=== PATIENT | male | born 1965 | race Caucasian/White ===

== ENCOUNTER 2016-09-18 15:32 | Emergency (ER) | payer OTHER, MEDICAID ==
[~2016-09-18] VITALS: Ht 160 cm; Wt 49.9 kg
[~2016-09-18 15:32] MED LIST: AMIK500I IJ; ATEN25TA7 PO; BENZ1TAB24 PO; CARB15SO5 OT; CARB200T1 GT; CHLOROPHYLL GT; DOCU50SO2 GT; ESOM40PK PO; MESA10003 RC; MIRABULK GT; SENN-72 GT; SUCR1TAB35 GT; SULF500T6 GT; SULF500T6 PO; [UNRECOGNIZED DRUG - CODE] GT; [UNRECOGNIZED DRUG - CODE] GT; [UNRECOGNIZED DRUG - CODE] PO
[2016-09-18 15:34] VITALS: BP 132/72
--- NOTE | 2016-09-18 15:52 | NUR ---
PATIENT TO BED 7 AT THIS TIME BY EMS
--- NOTE | 2016-09-18 16:00 | NUR ---
51/M biba from boarding care for a clogged g-tube this afternoon. Per EMS, facility states there is also a possible infection at the g-tube site. There is redness to stoma site and purulent draingage noted to drain sponge that was removed. Pt is awake, non verbal, unable to follow commands. Contractures noted to all 4 extremitites. Unable to ambulate.
--- NOTE | 2016-09-18 16:09 | NUR ---
Caregiver at bedside.
--- NOTE | 2016-09-18 16:27 | NUR ---
Patient being evaluated by Dr. De La Cruz at bedside.
--- NOTE | 2016-09-18 17:07 | NUR ---
Attempted to unclog/irrigate g-tube with coca cola per Dr. De La Cruz order. Unable to flush g-tube. No residual noted. Dr. De La Cruz made aware.
--- NOTE | 2016-09-18 17:32 | NUR ---
NO SMALLER SIZE G-TUBE AVAILABLE IN OR. DR. MCCOY MADE AWARE. NEW G-TUBE PLACED AT BEDSIDE, 18FR. SUTURE REMOVAL ALSO PLACED AT BEDSIDE FOR DR. MCCOY TO REPLACE G-TUBE. CAREGIVER AT BEDSIDE. VSS.
[2016-09-18] MEDS ORDERED: LIDOCAINE JELLY 2% 30 ML TUBE TP ONE (17:40)
--- NOTE | 2016-09-18 18:06 | NUR ---
Note tino in ED - 09/18/16 at 1807 by [facility] Patient will be admitted to care of Dr. Schulte. Admited to TELE. Will go to room 104-A. [facility] list completed. Report to Reinaldo DOWNING.
--- NOTE | 2016-09-18 19:04 | NUR ---
BRIEF CHANGED. PT CHANGED BACK INTO HIS CLOTHES. CAREGIVER AT BEDSIDE THE ENTIRE TIME. IV REMOVED FROM RIGHT WRIST. 4X4 APPLIED AND SECURED WITH TAPE. ABD BINDER APPLIED.
--- NOTE | 2016-09-18 19:16 | NUR ---
Pt report given to Júnior DOWNING. Transfer of care at this time.
--- NOTE | 2016-09-18 19:30 | NUR ---
IV removed, catheter intact and site benign. Applied folded 4x4 gauze and tape to stop bleeding.
--- NOTE | 2016-09-18 20:35 | NUR ---
Patient discharged with v/s stable. Written and verbal after care instructions given and explained. Patient verbalized understanding. Ambulance Transport with to intermediate. All questions addressed prior to discharge. Advised to follow up with PMD.
--- NOTE | 2016-09-18 20:35 | NUR ---
PT WAITING FOR TRANSPORT APPROVAL
--- NOTE | 2016-09-18 21:00 | NUR ---
[facility] WILL PICKUP PATIENT AT 0000.
[2016-09-18 22:42] VITALS: BP 104/62
--- NOTE | 2016-09-18 23:21 | NUR ---
[facility] HERE 206 ; TRANSPORT VIA RENY; REPORT ENDORSED TO MULUGETA
== END 2016-09-18 20:35 ==
LOC: MED 15:32
DX: K94.23 Gastrostomy malfunction (principal); Z88.1 Allergy status to other antibiotic agents; Z88.0 Allergy status to penicillin; Z88.8 Allergy status to other drugs, medicaments and biological substances; K21.9 Gastro-esophageal reflux disease without esophagitis
CPT/HCPCS: 43760; 74000; 93005; 99284

== ENCOUNTER 2018-03-13 14:46 | Emergency (ER) | payer OTHER, MEDICAID ==
[~2018-03-13] VITALS: Ht 152.4 cm; Wt 53.5 kg
[~2018-03-13 14:46] MED LIST changes: -BENZ1TAB24 PO; +BENZ1TAB99 PO; +MESA10002 RC; -MESA10003 RC
[2018-03-13 14:47] VITALS: BP 119/88
[2018-03-13 18:37] VITALS: BP 115/65
== END 2018-03-13 18:37 | disposition home or self-care (01) ==
LOC: MED 14:46
DX: K94.23 Gastrostomy malfunction (principal); K21.9 Gastro-esophageal reflux disease without esophagitis; I10 Essential (primary) hypertension; Z88.0 Allergy status to penicillin; Z88.1 Allergy status to other antibiotic agents; Z88.8 Allergy status to other drugs, medicaments and biological substances; Z79.899 Other long term (current) drug therapy
CPT/HCPCS: 43760; 74176; 74241; 82948; 99284; Q0092

== ENCOUNTER 2018-06-24 18:33 | Emergency (ER) | payer OTHER, MEDICAID ==
[~2018-06-24] VITALS: Ht 152.4 cm; Wt 49.4 kg
[~2018-06-24 18:33] MED LIST changes: +BENZ-248 PO; -BENZ1TAB99 PO
--- NOTE | 2018-06-24 18:36 | NUR ---
pt bryan bls to er bed 08
[2018-06-24 18:39] VITALS: BP 128/80
--- NOTE | 2018-06-24 18:43 | NUR ---
PATIENT BIBA FROM B/C WITH C/O CLOGGED G-TUBE X2 HOURS. PER CAREGIVE THEY TRIED WARM WATER, GT SOLUTION, SODA FLUSH, STILL UNABLE TO FLUSH. PT VSS, FLACC 0, OPEN EYES ONLY, APHSIC, UNABLE TO FOLLOW COMMANDS, NO S/S OF DISTRESS, CLEAR LUNG SOUNDS, REGULAR HR, NO EDEMA, GT IN PLACE, CLOTTED, INCONTINENT WITH B&B'S, CONTRACTURES TO ALL EXTREMITIES, SKIN IS INTACT, WARM AND DRY TO TOUCH, PATIENT POSITIONED FOR COMFORT; HOB ELEVATED; BEDRAILS UP X2; BED DOWN. ER MD MADE AWARE OF PT STATUS.
--- NOTE | 2018-06-24 19:23 | NUR ---
DR SANTANA AT BEDSIDE EVALUATING PT
--- NOTE | 2018-06-24 20:05 | NUR ---
#20 FR G-tube placed by Dr. Hogue. Flushed 2 lumens w/ 30cc of sterile water w/o resistance. Patient tolerated well.
--- NOTE | 2018-06-24 20:23 | NUR ---
X-RAY AT BEDSIDE FOR PLACEMENT.
--- NOTE | 2018-06-24 22:52 | NUR ---
TRANPORT AT BEDSIDE.
--- NOTE | 2018-06-24 23:00 | NUR ---
PT PICKED UP BY FACILITY TRANSPORT. VSS AT DISCHARGE. PT ACCOMPANIED BY 2 LVNS.
[2018-06-24 23:01] VITALS: BP 129/91
== END 2018-06-24 23:00 | disposition home or self-care (01) ==
LOC: MED 18:33
DX: K21.9 Gastro-esophageal reflux disease without esophagitis (principal); K94.23 Gastrostomy malfunction; I10 Essential (primary) hypertension; R07.9 Chest pain, unspecified; Z90.49 Acquired absence of other specified parts of digestive tract; Z79.899 Other long term (current) drug therapy; Z88.0 Allergy status to penicillin; Z88.1 Allergy status to other antibiotic agents; Z88.8 Allergy status to other drugs, medicaments and biological substances
CPT/HCPCS: 43762; 74241; 99284; Q0092

== ENCOUNTER 2020-01-24 09:21 | Emergency (ER) | payer OTHER, MEDICAID ==
[~2020-01-24] VITALS: Ht 144.8 cm; Wt 54.4 kg
[~2020-01-24 09:21] MED LIST changes: +BENZ-203 PO; -BENZ-248 PO
[2020-01-24 09:25] VITALS: BP 141/89
[2020-01-24 12:04] VITALS: BP 135/84
== END 2020-01-24 12:03 ==
LOC: MED 09:21
DX: K94.23 Gastrostomy malfunction (principal); E07.9 Disorder of thyroid, unspecified; I10 Essential (primary) hypertension; I63.9 Cerebral infarction, unspecified; K21.9 Gastro-esophageal reflux disease without esophagitis; R56.9 Unspecified convulsions; N28.9 Disorder of kidney and ureter, unspecified; Z88.1 Allergy status to other antibiotic agents; Z88.5 Allergy status to narcotic agent; Z88.0 Allergy status to penicillin; Z79.899 Other long term (current) drug therapy
CPT/HCPCS: 99283

== ENCOUNTER 2020-04-05 15:57 | Emergency (ER) | payer OTHER, MEDICAID ==
[~2020-04-05] VITALS: Ht 121.9 cm; Wt 53.5 kg
[~2020-04-05 15:57] MED LIST changes: -MESA10002 RC; +[UNRECOGNIZED DRUG - CODE] RC
--- NOTE | 2020-04-05 15:57 | NUR ---
BIBA TAKEN TO BED 2
[2020-04-05 16:34] VITALS: BP 128/85
--- NOTE | 2020-04-05 17:49 | NUR ---
patient resting no acute distress awaiting for Gtube placement.
--- NOTE | 2020-04-05 19:40 | NUR ---
RECEIVED REPORT FROM SALINA AHUMADA AND [facility] CARE.
[2020-04-05 20:20] VITALS: BP 128/85
--- NOTE | 2020-04-05 20:20 | NUR ---
Patient discharged with v/s stable. Written and verbal after care instructions given and explained. Patient verbalized understanding. Ambulance Transport with to longterm. All questions addressed prior to discharge. Advised to follow up with PMD.
== END 2020-04-05 20:20 ==
LOC: MED 15:57
DX: K94.20 Gastrostomy complication, unspecified (principal); K21.9 Gastro-esophageal reflux disease without esophagitis; I10 Essential (primary) hypertension; Z86.73 Personal history of transient ischemic attack (TIA), and cerebral infarction without residual deficits; N28.9 Disorder of kidney and ureter, unspecified; Z88.0 Allergy status to penicillin; Z88.1 Allergy status to other antibiotic agents; Z88.8 Allergy status to other drugs, medicaments and biological substances; Z79.899 Other long term (current) drug therapy
CPT/HCPCS: 43760; 43762; 99284

== ENCOUNTER 2021-01-12 10:25 | Inpatient (IN) | payer OTHER, MEDICAID, SELFPAY ==
[~2021-01-12] VITALS: Ht 142.2 cm; Wt 62.6 kg
[~2021-01-12 10:25] MED LIST changes: -BENZ-203 PO; +BENZ-315 PO; +DOCU50LI6 GT; -DOCU50SO2 GT; +[UNRECOGNIZED DRUG - CODE] PO; -[UNRECOGNIZED DRUG - CODE] PO
--- NOTE | 2021-01-12 10:25 | NUR ---
BIBA BLS TO ER BED 10
[2021-01-12] MEDS ORDERED: NACL 0.9% 1,000 ML IV SCH (10:30)
[2021-01-12] MEDS ORDERED: LEVOFLOXACIN 500 MG/D5W PREMIX 100 ML IV ONE (10:30)
--- NOTE | 2021-01-12 10:46 | NUR ---
SUPERVISOR TOY PARTS FORMER AT PT BEDSIDE.
[2021-01-12 10:57] VITALS: BP 135/88
--- NOTE | 2021-01-12 11:08 | NUR ---
55 Y/O NON-VERBAL MALE BIBA FROM [facility] C/O SOB X1DAY. PER EMS PT SPO2 92% ON RA ON ARRIVAL WITH AUDIBLE WHEEZES AND COUGH. PT A&OX0, GCS 9. PT PLACED ON 2L NC 95% ON RA. PT LUNGS AUSCULTATED WHEEZES THROUGHOUT. DENIES N/V, DENIES FEVER/CHILLS. PMH: PROFOUND INTELLECTUAL DISABILITY, BLIND, SEIZURE DISORDER, NEUROGENIC BLADDER AND BOWEL, QUADREPLEGIA, GTUBE, HYDROCEPHALUS, HTN, GERD, GASTRITIS, ORGANIC BRAIN DISORDER, TACHYCARDIA. ALLERGIES: CEPHALOSPORINS, PCN, AMPICILLIN, IMPERIUM, AZTREONAM
[2021-01-12 11:15] LABS: BASOPHILS % (AUTO) 0.4 % (0.0-2.0); EOSINOPHILS # (AUTO) 0.3 K/uL (0-0.4); EOSINOPHILS % (AUTO) 3.6 % (0.0-4.0); HEMATOCRIT 40.5 % (36-52); HEMOGLOBIN 13.5 g/dL (12.0-18.0); LYMPHOCYTES # (AUTO) 1.1 K/uL (2.0-11.5); LYMPHOCYTES % (AUTO) 15.7 % (20.5-51.1); MEAN CORPUSCULAR HEMOGLOBIN 34 pg (27-31); MEAN CORPUSCULAR HGB CONC 33 g/dL (33-37); MEAN CORPUSCULAR VOLUME 102.2 fL (80-94); MONOCYTES # (AUTO) 0.8 K/uL (0.8-1.0); MONOCYTES % (AUTO) 10.9 % (1.7-9.3); NEUTROPHILS # (AUTO) 4.9 K/uL (1.8-7.7); NEUTROPHILS % (AUTO) 69.4 % (42.2-75.2); PLATELET COUNT (AUTO) 271 K/uL (140-450); RED BLOOD CELL COUNT(AUTO) 3.96 MIL/uL (4.20-6.10); RED CELL DISTRIBUTION WIDTH 14.7 % (11.6-13.7)
--- NOTE | 2021-01-12 11:32 | NUR ---
OCCUPATIONAL SAFETY AND HEALTH MANAGER AT PT BEDSIDE FOR FURTHER EVALUATION.
--- NOTE | 2021-01-12 11:39 | NUR ---
xray bedside with patient
[2021-01-12 11:41] LABS: ANION GAP 6.4 (8-16); CARBON DIOXIDE 29.5 mmol/L (21-32); CREATININE 0.4 mg/dL (0.6-1.3); POTASSIUM 3.9 mmol/L (3.5-5.1); TOTAL BILIRUBIN 0.1 mg/dL (0.0-1.0)
[2021-01-12 11:42] LABS: ALBUMIN 2.8 g/dL (3.4-5.0)
[2021-01-12 11:46] LABS: BILIRUBIN,URINE NEGATIVE (NEGATIVE); BLOOD, URINE NEGATIVE (NEGATIVE); COLOR,URINE YELLOW (YELLOW); LEUKOCYTE ESTERASE ,URINE NEGATIVE (NEGATIVE); NITRITE, URINE NEGATIVE (NEGATIVE); UGLUCOSE NEGATIVE (NEGATIVE)
--- NOTE | 2021-01-12 12:08 | NUR ---
PT RESTING, REPOSITIONED, VSS, WILL CONTINUE TO MONITOR.
[2021-01-12 12:14] LABS: APPEARANCE,URINE CLEAR (CLEAR)
--- NOTE | 2021-01-12 13:31 | NUR ---
PT ADMITTED UNDER DR. NAPOLES FOR PNEUMONIA, TELEHOLD IN ER BED 10.
[2021-01-12] MEDS: NACL 0.9% 1,000 ML IV SCH ×2 (13:36→22:30)
[2021-01-12] MEDS ORDERED: LORazepam 2 MG/ML VIAL IVP PRN (13:55)
[2021-01-12] MEDS ORDERED: ZOLPIDEM 10 MG TAB PO PRN (13:55)
[2021-01-12] MEDS ORDERED: DOCUSATE SODIUM 100 MG GELCAP PO PRN (13:55)
[2021-01-12] MEDS ORDERED: POTASSIUM CHLORIDE 10 MEQ TABER PO PRN (13:55)
[2021-01-12] MEDS ORDERED: ONDANSETRON 4 MG/2 ML VIAL IVP PRN (13:55)
[2021-01-12] MEDS ORDERED: MAG SULF 2000 MG/WATER PREMIX 50 ML IV PRN (13:55)
[2021-01-12] MEDS ORDERED: MORPHINE SULFATE 2 MG/ML SYR IVP PRN (13:55)
[2021-01-12] MEDS ORDERED: ACETAMINOPHEN 325 MG TAB PO PRN (13:55)
--- NOTE | 2021-01-12 14:29 | NUR ---
PT SLEEPING, VISIBLE EQUAL RISE AND FALL OF CHEST, WILL CONTINUE TO MONITOR.
[2021-01-12] MEDS ORDERED: DOXYCYCLINE 100 MG VIAL IV ONE (15:46)
[2021-01-12] MEDS: DOXYCYCLINE 100 MG in DEXTROSE 5% 100 ML IV SCH (15:58)
[2021-01-12] MEDS ORDERED: CRUSHER, PILL MC ONE (17:17)
[2021-01-12] MEDS: sulfaSALAzine 500 MG TAB GT SCH (17:27)
[2021-01-12] MEDS: carBAMazepine 200 MG TAB GT SCH (17:27)
--- NOTE | 2021-01-12 19:22 | NUR ---
GAVE REPORT TO SALINA TORO. TRANSFER OF CARE AT THIS TIME.
--- NOTE | 2021-01-12 19:22 | NUR ---
received report from Lara DOWNING for continuity of care
--- NOTE | 2021-01-12 19:40 | NUR ---
Patient noted to have existing wounds upon arrival to ER on the abdomen region of patient's G-tube. Photos taken of wound and placed in chart. Wound covered with dressing. Physician informed.
[2021-01-12] MEDS ORDERED: BIOT10002 GT (19:47)
[2021-01-12] MEDS ORDERED: CARV6.25 GT (19:47)
[2021-01-12] MEDS ORDERED: [UNRECOGNIZED DRUG - CODE] MM (19:47)
[2021-01-12] MEDS ORDERED: DOCU-299 GT (19:47)
--- NOTE | 2021-01-12 19:52 | NUR ---
repositioned to the right side, pericare provided, changed sheets and gown-- patient tolerated well
--- NOTE | 2021-01-12 20:42 | NUR ---
Patient will be admitted to care of Zena Landis MD. Admited to telemetry. Will go to room 107A. Belongings list completed. Report to Chantelle DOWNING and Lore DOWNING.
--- NOTE | 2021-01-12 21:04 | NUR ---
[facility]
--- NOTE | 2021-01-12 21:10 | NUR ---
PT ARRIVED VIA GURNEY AND WAS TRANSFERRED TO ROOM 107A. PT IS AOX1 HE IS ON ROOM AIR AND HAS A 22G ON LEFT HAND. PT WAS TURNED, CHANGED AND REPOSITIONED IN BED. SKIN INTACT WITH OLD HEALED SCAR ON BUTTOCKS. PT NOTED WITH CONTRACTIONS IN HANDS AND FEET NOTED WITH FOOT DROP. PT UNABLE TO AMBULATE AND IS BLIND. PT ALSO HAS HX OF SEIZURES AND HAS SEIZURE PRECAUTIONS IN PLACE. PT HAS G TUBE INTACT. PT V/S FOLLOWS: T 97.9 P 81 R 20 B/P 138/79 02 95% ON ROOM AIR. ALL ORDERED PRECAUTIONS IN PLACE.
--- NOTE | 2021-01-12 22:10 | NUR ---
PT WAS GIVEN ORDERED HEPARIN SQ SHOT WELL NORMAL SALINE HUNG AND RUNNING AT 100MLS AN HOUR ORDERED. ALL ORDERED PRECAUTIONS IN PLACE.
--- NOTE | 2021-01-13 00:15 | NUR ---
CHECKED ON PT, SLEEPING ON BED. NO S/S OF DISTRESS. VITAL SIGNS TAKEN AND RECORDED. REPOSITIONED PT. ALL SAFETY MEASURES IN PLACE.
--- NOTE | 2021-01-13 02:20 | NUR ---
MADE ROUNDS ON PT, PT ASLEEP. BREATHING IS UNLABORED. NO S/S OF DISTRESS. CALL LIGHT WITHIN REACH. ALL SAFETY PRECAUTIONS IN PLACE. WILL CONTINUE TO MONITOR.
[2021-01-13 04:10] VITALS: BP 138/79
--- NOTE | 2021-01-13 04:15 | NUR ---
PT SLEEPING, WITH SYMMETRICAL RISE AND FALL OF CHEST O2 AT 97%. PROVIDED COMFORT AND REPOSITIONED PT. SAFETY MEASURES IN PLACE.
[2021-01-13 04:16] VITALS: BP 138/79
--- NOTE | 2021-01-13 06:30 | NUR ---
PT IS AWAKE, COLLECTED URINE SAMPLE. CLEANED AND CHANGED PT DIAPER. PROVIDED SPONGE BATH. PT TOLERATED THE ACTIVITY AND NO SIGNS OF ANY DISTRESS. SAFETY PRECAUTIONS IN PLACE.
[2021-01-13 06:53] LABS: BASOPHILS % (AUTO) 0.7 % (0.0-2.0); EOSINOPHILS # (AUTO) 0.3 K/uL (0-0.4); EOSINOPHILS % (AUTO) 5.3 % (0.0-4.0); HEMATOCRIT 41.9 % (36-52); HEMOGLOBIN 13.8 g/dL (12.0-18.0); LYMPHOCYTES # (AUTO) 1.1 K/uL (2.0-11.5); LYMPHOCYTES % (AUTO) 23.6 % (20.5-51.1); MEAN CORPUSCULAR HEMOGLOBIN 34 pg (27-31); MEAN CORPUSCULAR HGB CONC 33 g/dL (33-37); MEAN CORPUSCULAR VOLUME 102.5 fL (80-94); MONOCYTES # (AUTO) 0.6 K/uL (0.8-1.0); MONOCYTES % (AUTO) 12.3 % (1.7-9.3); NEUTROPHILS # (AUTO) 2.7 K/uL (1.8-7.7); NEUTROPHILS % (AUTO) 58.1 % (42.2-75.2); PLATELET COUNT (AUTO) 274 K/uL (140-450); RED BLOOD CELL COUNT(AUTO) 4.09 MIL/uL (4.20-6.10); RED CELL DISTRIBUTION WIDTH 14.4 % (11.6-13.7); WHITE BLOOD COUNT (AUTO) 4.7 K/uL (4.8-10.8)
--- NOTE | 2021-01-13 07:25 | NUR ---
RECEIVED REPORT FROM FILTER WORKER NURSE FOR CONTINUITY OF CARE. PATIENT IS IN BED RESTING. RESPIRATIONS ARE EVEN AND UNLABORED. HE IS ON ROOM AIR, SATURATING AT 95%. PATIENT IS ALERT AND ORIENTED X1. HE IS APHASIC AND BLIND. CONTRACTIONS NOTED TO HANDS AND FEET. PATIENT HAS IV TO L HAND, 22G, INFUSING. PATIENT HAS G TUBE IN PLACE, IT IS INTACT AND PATENT. PATIENT IS INCONTINENT OF BOWEL AND BLADDER. SKIN IS INTACT. CALL LIGHT WITHIN REACH. BED IN LOWEST POSITION. ALL SAFETY MEASURES IN PLACE. WILL CONTINUE TO MONITOR.
[2021-01-13 07:46] LABS: ANION GAP 15.6 (8-16); CARBON DIOXIDE 24.1 mmol/L (21-32); CREATININE 0.5 mg/dL (0.6-1.3); POTASSIUM 3.7 mmol/L (3.5-5.1)
[2021-01-13 08:00] VITALS: BP 135/96
[2021-01-13] MEDS: carBAMazepine 200 MG TAB GT SCH ×3 (08:49→16:44)
[2021-01-13] MEDS: atenoloL 25 MG TAB PO SCH (08:50)
[2021-01-13] MEDS: sulfaSALAzine 500 MG TAB PO SCH (09:02)
--- NOTE | 2021-01-13 09:27 | NUR ---
PATIENT HAS BEEN SCREENED AND CATEGORIZED HIGH NUTRITION RISK. PATIENT WILL BE SEEN WITHIN 1-2 DAYS OF ADMISSION. 01/13/21-01/14/21 FNS REFERRAL RECEIVED FOR TUBE FEEDING JEANNETTE LEWIS RD
--- NOTE | 2021-01-13 09:30 | NUR ---
ROUNDED ON PT. HE IS IN SEMI FOWLERS POSITION, APHASIC. DOES NOT RESPOND TO COMMANDS. ON RA WITH BREATHING UNLABORED. G TUBE IN PLACE WITH G TUBE RESIDUAL LESS THAN 5 ML. BILATERAL CONTRACTURES UPPER AND LOWER EXTREMITIES. PT IS STABLE. NO DISTRESS NOTED.
--- NOTE | 2021-01-13 11:00 | NUR ---
PT WAS CHANGED AND REPOSITIONED. PT VOIDED IN DIAPER CLEAR, YELLOW URINE. G TUBE DRESSING CHANGED. IV WAS PULLED OUT WHILE CHANGING PT. WILL PLACE NEW IV SHORTLY. G TUBE FEEDING ORDER PLACED. WILL ADMINISTER TO PT ONCE FEEDING IS RECEIVED ON THE UNIT.
--- NOTE | 2021-01-13 11:06 | NUR ---
RECEIVED TORB FROM DR. MYERS FOR NEW TF ORDER.
[2021-01-13 12:00] VITALS: BP 116/80
--- NOTE | 2021-01-13 14:26 | NUR ---
01/13/21 RD INITIAL ASSESSMENT COMPLETED PLEASE REFER TO NUTRITION ASSESSMENT UNDER CARE ACTIVITY FOR ESTIMATED NUTRITIONAL NEEDS. 1. RECOMMENDED JEVITY 1.2 @ 50 ML/HR; FLUSH OF 120 ML Q6H -THIS WILL PROVIDE 1200 ML OF VOLUME, 1440 KCAL/DAY AND 67 GM OF PROTEIN/DAY 2. RECOMMENDED ELIZABETH BID 3. RD TO FOLLOW-UP 2-3 DAYS, HIGH RISK JEANNETTE LEWIS, RD
--- NOTE | 2021-01-13 15:30 | NUR ---
ATTEMPTED TO PLACE IV TWICE WITHOUT SUCCESS. NEW IV PLACED BY CHARGE NURSE DAVIAN DOWNING. IV IS PLACED IN THE LEFT HAND 24 GAUGE INFUSING FLUIDS ORDERED. PT TOLERATED THIS WELL. FLACC 0. PT IS APHASIC. NO DISTRESS NOTED. STABLE.
[2021-01-13] MEDS: DOXYCYCLINE 100 MG in DEXTROSE 5% 100 ML IV SCH (15:33)
--- NOTE | 2021-01-13 15:41 | NUR ---
PT. WITH LOW MOHINI SCALE AT HIGH RISK, CONTINUE TO FOLLOW PRESSURE INJURY PREVENTION INTERVENTIONS. GT SITE REDNESS, KEEP AREA DRY AND CLEAN, APPLY Z GUARD QD AND PRN IF SOILING. -TURN AND REPOSITION PATIENT Q 2H -ASSESS AND MONITOR SKIN CONDITION DURING POSITION CHANGE -OFFLOAD BILATERAL HEELS BY PLACING PILLOWS UNDER CALVES AT ALL TIMES, UNLESS OTHERWISE CONTRAINDICATED -PRESSURE REDISTRIBUTION SURFACE AND OFFLOADING SACRALCOCCYX -KEEP SKIN CLEAN AND DRY AT ALL TIMES. PLEASE NOTIFIED WOUND CARE NURSE FOR ANY CHANGE OF SKIN CONDITION
--- NOTE | 2021-01-13 15:43 | NUR ---
DC PLANNING: LALY SPOKE WITH DINORAH FROM [facility] IN [place], A [facility] FOR DISABLED RESIDENTS. THE PATIENT HAS LIVED THERE FOR 26 YEARS AND IS BLIND, DEAF AND QUADRIPLEGIC. HE IS ABLE TO MOVE HIS LEFT ARM/HAND FROM TIME TO TIME, AND IS TOTAL CARE AND NON-VERBAL. HE HAS A PEG AND IS OUT OF BED DURING THE DAY. HIS PCP EDMOND KINNEY SEES HIM EVERY 60 DAYS IN THE FACILITY OR NEEDED. THE PATIENT WAS RECENTLY EVALUATED BY A ART OBJECTS SUPERVISOR AND WAS NOT HAVING OXYGENATION ISSUES AT THAT TIME BUT HE HAS REQUIRED DUONEB TREATMENTS RECENTLY WHICH DINORAH STATES IS NORMAL BECAUSE OF WEATHER CHANGES. THE PATIENT IS [facility], HIS WORKER IS ASHLEY SKELTON. THE PATIENT HAS VERY LITTLE FAMILY BUT HAS A NIECE WHO SOMETIMES CALLS THE FACILITY. THE DC PLAN WHEN THE PATIENT IS STABLE IS TO RETURN TO [facility] IN [place]. LALY WILL FOLLOW FOR NEEDS. Addendum: 01/16/21 at 1034 by Hiral Lockhart CM DC PLANNING: DC ORDER RECEIVED, LALY SPOKE WITH CATALINO AT [facility], ENDORSED THAT PRESCRIPTION FOR PO ABX WILL BE SENT TO THE IDENTIFIED PHARMACY FOR THE PATIENT. CATALINO STATES SHE CAN PICK THE PATIENT UP AROUND FOUR PM TODAY, CLINICAL INFORMATION FAXED TO HER. LALY WILL FOLLOW FOR NEEDS. Addendum: 01/16/21 at 1149 by Hiral Lockhart CM DC PLANNING: LALY SPOKE WITH CATALINO AT [facility], ENDORSED THAT THE PATIENT WILL CONTINUE DOXYCYCLINE AND AZULFIDINE PO ON DISCHARGE. HE WILL BE PICKED UP BY THE FACILITY AT 1400, LALY ENDORSED THE DC PLAN AND TIME TO HIS RN SHERRY. LALY WILL FOLLOW FOR NEEDS.
[2021-01-13 16:00] VITALS: BP 124/72
[2021-01-13] MEDS: sulfaSALAzine 500 MG TAB GT SCH (16:46)
--- NOTE | 2021-01-13 16:46 | NUR ---
ALL SCHEDULED MEDICATIONS ADMINISTERED. PATIENT TOLERATED WELL. NO SIGNS OF DISTRESS NOTED. WILL CONTINUE TO MONITOR.
[2021-01-13] MEDS: NACL 0.9% 1,000 ML IV SCH (16:48)
--- NOTE | 2021-01-13 19:22 | NUR ---
ENDORSED PATIENT TO STUDIO ASSISTANT NURSE FOR CONTINUITY OF CARE. PATIENT IS STABLE. NO SIGHS OF DISTRESS NOTED. ALL SAFETY MEASURES IN PLACE.
[2021-01-13] MEDS ORDERED: carvediloL 6.25 MG TAB GT SCH (21:00)
--- NOTE | 2021-01-13 21:10 | NUR ---
HEPARIN VIAL DROPPED ON FLOOD AND SHATTERED BOTTOM RIM AND SPILLED OUT CONTENTS. RETURNED TO [facility] FOR SECOND HEPARIN VIAL.
[2021-01-13] MEDS: BENZTROPINE 1 MG TAB PO SCH (21:15)
[2021-01-14 07:27] LABS: BASOPHILS % (AUTO) 0.4 % (0.0-2.0); EOSINOPHILS # (AUTO) 0.2 K/uL (0-0.4); EOSINOPHILS % (AUTO) 1.8 % (0.0-4.0); HEMATOCRIT 47.5 % (36-52); HEMOGLOBIN 15.8 g/dL (12.0-18.0); LYMPHOCYTES % (AUTO) 11.8 % (20.5-51.1); MEAN CORPUSCULAR HEMOGLOBIN 34 pg (27-31); MEAN CORPUSCULAR HGB CONC 33 g/dL (33-37); MEAN CORPUSCULAR VOLUME 101.9 fL (80-94); MONOCYTES # (AUTO) 0.7 K/uL (0.8-1.0); MONOCYTES % (AUTO) 7.6 % (1.7-9.3); NEUTROPHILS # (AUTO) 6.9 K/uL (1.8-7.7); NEUTROPHILS % (AUTO) 78.4 % (42.2-75.2); PLATELET COUNT (AUTO) 316 K/uL (140-450); RED BLOOD CELL COUNT(AUTO) 4.66 MIL/uL (4.20-6.10); RED CELL DISTRIBUTION WIDTH 14.4 % (11.6-13.7); WHITE BLOOD COUNT (AUTO) 8.8 K/uL (4.8-10.8)
[2021-01-14 07:33] LABS: ANION GAP 11.7 (8-16); CARBON DIOXIDE 28.4 mmol/L (21-32); CREATININE 0.6 mg/dL (0.6-1.3); POTASSIUM 5.1 mmol/L (3.5-5.1)
[2021-01-14 08:00] VITALS: BP 147/94
--- NOTE | 2021-01-14 08:00 | NUR ---
NURSE REPORT REPORT OBTAINED FROM NIGHT NURSE ALLEY AT 07 AND THIS NURSE ASSUMED CARE OF PATIENT. VSS. DILLONEB. NO C/O PAIN OR DISCOMFORT. Addendum: 01/14/21 at 1603 by Agency Nurse SALINA Marte RN CORRECTION: REPORT AT 722 GIVEN BY NIGHT NURSE JAYE. Addendum: 01/14/21 at 2030 by Agency Nurse SALINA Marte RN TELE MONITOR AT [phone].
[2021-01-14] MEDS: sulfaSALAzine 500 MG TAB PO SCH (09:45)
[2021-01-14] MEDS: BENZTROPINE 1 MG TAB PO SCH ×2 (10:54→21:45)
[2021-01-14] MEDS: atenoloL 25 MG TAB PO SCH (10:54)
[2021-01-14] MEDS: NACL 0.9% 1,000 ML IV SCH ×2 (10:55→22:29)
[2021-01-14] MEDS: carBAMazepine 200 MG TAB GT SCH ×3 (10:55→16:59)
[2021-01-14 12:00] VITALS: BP 115/85
--- NOTE | 2021-01-14 12:00 | NUR ---
NURSE CHRISTY DILLONEB. BP 94/55. IV S AT 70 ML/HR. TUBEFEEDING JEVITY 1.2 INCREASED TO 50 ML/HR. GOAL IS 50 ML/HR. Addendum: 01/14/21 at 2032 by Agency Nurse 23, RN RN CORRECTION BP AT 1200- 115/85.
[2021-01-14] MEDS: DOXYCYCLINE 100 MG in DEXTROSE 5% 100 ML IV SCH (15:48)
[2021-01-14 16:00] VITALS: BP 94/55
--- NOTE | 2021-01-14 16:00 | NUR ---
NURSE NOTES VSS. AFEB. BP 94/55. NO SXS OF PAIN OR DISCOMFORT. INCONTINENT OF URINE X 5. NO BM.
[2021-01-14] MEDS: sulfaSALAzine 500 MG TAB GT SCH (16:56)
[2021-01-14 20:00] VITALS: BP 112/64
--- NOTE | 2021-01-14 20:07 | NUR ---
NURSE REPORT AND ENDORSEMENT REPORT GIVEN TO NIGHT NURSE SHANNON TO ASSUME CARE OF PATIENT. ALL QUESTIONS ANSWERED. NOW MED SURG STATUS.
[2021-01-15] VITALS: BP 115/68
[2021-01-15 04:42] VITALS: BP 107/69
[2021-01-15 06:57] LABS: BASOPHILS % (AUTO) 0.6 % (0.0-2.0); EOSINOPHILS # (AUTO) 0.4 K/uL (0-0.4); EOSINOPHILS % (AUTO) 7.1 % (0.0-4.0); HEMATOCRIT 43.8 % (36-52); HEMOGLOBIN 14.4 g/dL (12.0-18.0); LYMPHOCYTES # (AUTO) 1.4 K/uL (2.0-11.5); LYMPHOCYTES % (AUTO) 26.3 % (20.5-51.1); MEAN CORPUSCULAR HEMOGLOBIN 34 pg (27-31); MEAN CORPUSCULAR HGB CONC 33 g/dL (33-37); MONOCYTES # (AUTO) 0.9 K/uL (0.8-1.0); MONOCYTES % (AUTO) 16.4 % (1.7-9.3); NEUTROPHILS # (AUTO) 2.6 K/uL (1.8-7.7); NEUTROPHILS % (AUTO) 49.6 % (42.2-75.2); PLATELET COUNT (AUTO) 300 K/uL (140-450); RED BLOOD CELL COUNT(AUTO) 4.29 MIL/uL (4.20-6.10); RED CELL DISTRIBUTION WIDTH 14.6 % (11.6-13.7); WHITE BLOOD COUNT (AUTO) 5.2 K/uL (4.8-10.8)
[2021-01-15 07:05] LABS: ANION GAP 12.8 (8-16); CARBON DIOXIDE 25.2 mmol/L (21-32); CREATININE 0.5 mg/dL (0.6-1.3)
--- NOTE | 2021-01-15 07:37 | NUR ---
BEDSIDE REPORT RECEIVED FROM SUPERVISOR SLASHING DEPARTMENT. PATIENT RESTING. ALL SAFETY MEASURES IN PLACE.
[2021-01-15] MEDS: BENZTROPINE 1 MG TAB PO SCH ×2 (08:52→21:00)
[2021-01-15] MEDS: atenoloL 25 MG TAB PO SCH (08:53)
[2021-01-15] MEDS: carBAMazepine 200 MG TAB GT SCH ×3 (08:54→17:00)
[2021-01-15] MEDS: sulfaSALAzine 500 MG TAB PO SCH (08:59)
--- NOTE | 2021-01-15 11:05 | NUR ---
01/15/21 RD FOLLOW UP COMPLETED PLEASE REFER TO NUTRITION ASSESSMENT UNDER CARE ACTIVITY FOR ESTIMATED NUTRITIONAL NEEDS. 1. CONTINUE JEVITY 1.2 @ 50 ML/HR; FLUSH OF 120 ML Q6H -THIS WILL PROVIDE 1200 ML OF VOLUME, 1440 KCAL/DAY AND 67 GM OF PROTEIN/DAY 2. CONTINUE ELIZABETH BID 3. RD TO FOLLOW-UP 2-3 DAYS, HIGH RISK REVIEWED BY JEANNETTE LEWIS RD
[2021-01-15] MEDS: NACL 0.9% 1,000 ML IV SCH (13:51)
[2021-01-15] MEDS: DOXYCYCLINE 100 MG in DEXTROSE 5% 100 ML IV SCH (15:00)
[2021-01-15] MEDS: sulfaSALAzine 500 MG TAB GT SCH (17:00)
[2021-01-16 01:32] VITALS: BP 116/64
[2021-01-16] MEDS: NACL 0.9% 1,000 ML IV SCH (01:38)
--- NOTE | 2021-01-16 03:50 | NUR ---
the patient was assessed, the patient is aphasic . he is on tube feeding . he voids twice . pateint care was provided. sleeps comfortable in his bed. breathing is even and unlabored 02 stat is 92% on room air. comfort and safety measures were provided
[2021-01-16 07:19] LABS: BASOPHILS % (AUTO) 0.5 % (0.0-2.0); EOSINOPHILS # (AUTO) 0.2 K/uL (0-0.4); EOSINOPHILS % (AUTO) 2.9 % (0.0-4.0); HEMATOCRIT 40.3 % (36-52); HEMOGLOBIN 13.3 g/dL (12.0-18.0); LYMPHOCYTES # (AUTO) 1.5 K/uL (2.0-11.5); LYMPHOCYTES % (AUTO) 19.4 % (20.5-51.1); MEAN CORPUSCULAR HEMOGLOBIN 34 pg (27-31); MEAN CORPUSCULAR HGB CONC 33 g/dL (33-37); MEAN CORPUSCULAR VOLUME 102.5 fL (80-94); MONOCYTES # (AUTO) 1.1 K/uL (0.8-1.0); MONOCYTES % (AUTO) 14.2 % (1.7-9.3); PLATELET COUNT (AUTO) 274 K/uL (140-450); RED BLOOD CELL COUNT(AUTO) 3.93 MIL/uL (4.20-6.10); WHITE BLOOD COUNT (AUTO) 7.9 K/uL (4.8-10.8)
--- NOTE | 2021-01-16 07:30 | NUR ---
RECEIVED PATIENT CARE AND REPORT FROM [facility] NURSE. PATIENT ALERT AND NONVERBAL. UNABLE TO ASSESS ORIENTATION. RESTING ON RIGHT SIDE, CONTRACTED. PEG-TUBE SITE INTACT. IV LINE SITE INTACT. ALL NEEDS MET AT THIS TIME.
[2021-01-16 07:32] LABS: CREATININE 0.5 mg/dL (0.6-1.3)
[2021-01-16 08:00] VITALS: BP 128/62
[2021-01-16] MEDS: BENZTROPINE 1 MG TAB PO SCH (09:26)
[2021-01-16] MEDS: atenoloL 25 MG TAB PO SCH (09:27)
[2021-01-16] MEDS: sulfaSALAzine 500 MG TAB PO SCH (09:27)
[2021-01-16] MEDS: carBAMazepine 200 MG TAB GT SCH ×2 (09:27→12:52)
[2021-01-16] MEDS ORDERED: DOXY-487 PO (10:15)
[2021-01-16 12:10] VITALS: BP 110/67
--- NOTE | 2021-01-16 13:03 | NUR ---
PATIENT CLEANED AND PREPARED FOR PICKUP. HAD 2 VOIDS AND 1 SMALL BROWN, SOFT BM THROUGHOUT SHIFT.
--- NOTE | 2021-01-16 13:13 | NUR ---
ATTEMPTED TO CALL [facility] TO GIVE REPORT. NO ANSWER FROM NURSE. LEFT NAME AND NUMBER WITH TRANSACTION PROCESSOR.
--- NOTE | 2021-01-16 14:45 | NUR ---
CALLED AND GAVE REPORT TO FACILITY.
--- NOTE | 2021-01-16 14:55 | NUR ---
PATIENT TRANSPORTATION ARRIVED. PATIENT SHOWS NO S/S OF DISTRESS OR DISCOMFORT. IV REMOVED. SKIN INTACT WITHOUT INFLAMMATION OR REDNESS. WRIST BAND REMOVED. ACCOMPANIED BY BOARD AND CARE EMPLOYEE.
== END 2021-01-16 15:50 | DRG 177 ==
LOC: MED 10:25 → MTU 13:31
PROVIDERS: ADMIT General Practice; ATTEND General Practice
DX: J69.0 Pneumonitis due to inhalation of food and vomit (principal); J96.00 Acute respiratory failure, unspecified whether with hypoxia or hypercapnia; E43 Unspecified severe protein-calorie malnutrition; G82.50 Quadriplegia, unspecified; G93.41 Metabolic encephalopathy; G91.9 Hydrocephalus, unspecified; E87.1 Hypo-osmolality and hyponatremia; G40.909 Epilepsy, unspecified, not intractable, without status epilepticus; Z20.822 Contact with and (suspected) exposure to COVID-19; R13.10 Dysphagia, unspecified; I10 Essential (primary) hypertension; Z88.1 Allergy status to other antibiotic agents; Z88.0 Allergy status to penicillin; Z88.8 Allergy status to other drugs, medicaments and biological substances; Z79.899 Other long term (current) drug therapy; Z68.30 Body mass index [BMI] 30.0-30.9, adult; Z98.2 Presence of cerebrospinal fluid drainage device
CPT/HCPCS: 36415; 71045; 80048; 80053; 81003; 83036; 83605; 83735; 83880; 84484; 85025; 87040; 87081; 87086; 87804; 93005; 96365; 99285; J1644; J1956; J3490; J7060; Q0092; U0003

== ENCOUNTER 2021-01-18 19:37 | Inpatient (IN) | payer OTHER, MEDICAID, SELFPAY ==
[~2021-01-18] VITALS: Ht 154.9 cm; Wt 64.4 kg
[2021-01-18 19:37] VITALS: BP 137/108
[~2021-01-18 19:37] MED LIST changes: -AMIK500I IJ; +BIOT10002 GT; -CARB15SO5 OT; +CARV6.25 GT; +DOCU-299 GT; -DOCU50LI6 GT; +DOXY-487 PO; -ESOM40PK PO; -MIRABULK GT; -SENN-72 GT; -SUCR1TAB35 GT; -[UNRECOGNIZED DRUG - CODE] GT; -[UNRECOGNIZED DRUG - CODE] GT; +[UNRECOGNIZED DRUG - CODE] MM; -[UNRECOGNIZED DRUG - CODE] PO; -[UNRECOGNIZED DRUG - CODE] RC
[2021-01-18] MEDS ORDERED: LEVOFLOXACIN 750 MG/D5W PREMIX 150 ML IV ONE (19:40)
[2021-01-18 20:14] LABS: BASOPHILS % (AUTO) 0.1 % (0.0-2.0); EOSINOPHILS % (AUTO) 0.2 % (0.0-4.0); HEMATOCRIT 44.9 % (36-52); LYMPHOCYTES # (AUTO) 0.4 K/uL (2.0-11.5); LYMPHOCYTES % (AUTO) 5.4 % (20.5-51.1); MEAN CORPUSCULAR HEMOGLOBIN 34 pg (27-31); MEAN CORPUSCULAR HGB CONC 33 g/dL (33-37); MEAN CORPUSCULAR VOLUME 101.4 fL (80-94); MONOCYTES # (AUTO) 0.4 K/uL (0.8-1.0); MONOCYTES % (AUTO) 4.9 % (1.7-9.3); NEUTROPHILS # (AUTO) 6.6 K/uL (1.8-7.7); NEUTROPHILS % (AUTO) 89.4 % (42.2-75.2); PLATELET COUNT (AUTO) 376 K/uL (140-450); RED BLOOD CELL COUNT(AUTO) 4.43 MIL/uL (4.20-6.10); RED CELL DISTRIBUTION WIDTH 15.4 % (11.6-13.7); WHITE BLOOD COUNT (AUTO) 7.4 K/uL (4.8-10.8)
[2021-01-18 20:38] LABS: CREATININE 0.6 mg/dL (0.6-1.3)
[2021-01-18 20:45] LABS: ALBUMIN 2.6 g/dL (3.4-5.0); TOTAL BILIRUBIN 0.3 mg/dL (0.0-1.0)
[2021-01-18 20:51] LABS: APPEARANCE,URINE CLEAR (CLEAR); BILIRUBIN,URINE NEGATIVE (NEGATIVE); BLOOD, URINE NEGATIVE (NEGATIVE); COLOR,URINE DARK YELLOW (YELLOW); LEUKOCYTE ESTERASE ,URINE NEGATIVE (NEGATIVE); NITRITE, URINE NEGATIVE (NEGATIVE); PH,URINE 6.5 (5.0-9.0); UGLUCOSE NEGATIVE (NEGATIVE)
[2021-01-18 21:24] LABS: RBC,URINE 0-5 /HPF (0-5); WBC,URINE 0-5 /HPF (0-5)
[2021-01-18 21:25] LABS: TRICHOMONAS,URINE None Seen /HPF (None Seen); YEAST,URINE None Seen /HPF (None Seen)
[2021-01-18] MEDS ORDERED: NACL 0.9% 1,000 ML IV ONE (22:30)
[2021-01-18] MEDS: DEXT 5% / NACL 0.45% 1,000 ML IV SCH (23:30)
[2021-01-19] MEDS ORDERED: NACL 0.9% 1,000 ML IV SCH (01:05)
[2021-01-19 09:07] VITALS: BP 102/58
[2021-01-19] MEDS ORDERED: ONDANSETRON 4 MG/2 ML VIAL IVP PRN (09:30)
[2021-01-19] MEDS ORDERED: LORazepam 2 MG/ML VIAL IVP PRN (09:30)
[2021-01-19] MEDS ORDERED: SALIVA SUBSTITUTE COMBO NO 9 MM SCH (09:30)
[2021-01-19] MEDS ORDERED: HYDROcodone/APAP 5/325 MG 1 TAB TAB GT PRN (09:30)
[2021-01-19] MEDS ORDERED: ACETAMINOPHEN 325 MG TAB GT PRN (09:30)
[2021-01-19] MEDS: DEXT 5% / NACL 0.45% 1,000 ML IV SCH (09:42)
[2021-01-19] MEDS: DEXT 5% /NACL 0.9% 1,000 ML IV SCH ×2 (10:22→20:02)
[2021-01-19] MEDS: carvediloL 6.25 MG TAB GT SCH (10:26)
[2021-01-19] MEDS ORDERED: CLINDAMYCIN 600 MG/4 ML VIAL ONE ×2 (13:12→22:01)
[2021-01-19] MEDS: carBAMazepine 200 MG TAB GT SCH ×2 (13:29→17:11)
[2021-01-19] MEDS: CLINDAMYCIN 600 MG in DEXTROSE 5% 50 ML IV SCH ×2 (13:30→21:00)
[2021-01-19] MEDS: IPRATROPIUM 0.02% 0.5 MG/2.5 ML NEBU INH SCH ×2 (13:49→19:00)
[2021-01-19] MEDS: ALBUTEROL 0.083% 2.5 MG/3 ML NEBU INH SCH ×2 (13:49→19:00)
[2021-01-19] MEDS: sulfaSALAzine 500 MG TAB GT SCH (17:10)
[2021-01-19 19:35] VITALS: BP 121/76
[2021-01-19] MEDS: LEVOFLOXACIN 750 MG/D5W PREMIX 150 ML IV SCH (20:01)
[2021-01-19] MEDS ORDERED: CHLOROPHYLL GT SCH (21:00)
[2021-01-19] MEDS: BENZTROPINE 1 MG TAB PO SCH (21:00)
[2021-01-19] MEDS: DOCUSATE 100 MG/10 ML UDC GT SCH (21:00)
[2021-01-20] VITALS: BP 116/75
[2021-01-20] MEDS: ALBUTEROL 0.083% 2.5 MG/3 ML NEBU INH SCH ×3 (01:00→13:45)
[2021-01-20] MEDS: IPRATROPIUM 0.02% 0.5 MG/2.5 ML NEBU INH SCH ×3 (01:00→13:45)
[2021-01-20 04:00] VITALS: BP 105/68
[2021-01-20] MEDS: DEXT 5% /NACL 0.9% 1,000 ML IV SCH (04:41)
[2021-01-20] MEDS ORDERED: CLINDAMYCIN 600 MG/4 ML VIAL ONE (05:04)
[2021-01-20] MEDS: CLINDAMYCIN 600 MG in DEXTROSE 5% 50 ML IV SCH ×3 (05:07→21:45)
[2021-01-20 06:27] LABS: HEMATOCRIT 31.5 % (36-52); HEMOGLOBIN 10.5 g/dL (12.0-18.0); MEAN CORPUSCULAR HEMOGLOBIN 34 pg (27-31); MEAN CORPUSCULAR HGB CONC 33 g/dL (33-37); MEAN CORPUSCULAR VOLUME 102.2 fL (80-94); PLATELET COUNT (AUTO) 251 K/uL (140-450); RED BLOOD CELL COUNT(AUTO) 3.08 MIL/uL (4.20-6.10); RED CELL DISTRIBUTION WIDTH 15.2 % (11.6-13.7); WHITE BLOOD COUNT (AUTO) 11.7 K/uL (4.8-10.8)
[2021-01-20 06:44] LABS: ALBUMIN 1.8 g/dL (3.4-5.0); ANION GAP 7.5 (8-16); CARBON DIOXIDE 27.4 mmol/L (21-32); CREATININE 0.4 mg/dL (0.6-1.3); MAGNESIUM 2.1 mg/dL (1.8-2.4); PHOSPHORUS 1.5 mg/dL (2.5-4.9); POTASSIUM 3.9 mmol/L (3.5-5.1); TOTAL BILIRUBIN 0.3 mg/dL (0.0-1.0)
[2021-01-20 06:57] LABS: EOSINOPHILS % (MANUAL) 2 % (0-4); LYMPHOCYTES % (MANUAL) 10 % (20-46); MONOCYTES % (MANUAL) 10 % (5-12)
[2021-01-20 08:00] VITALS: BP 110/63
[2021-01-20] MEDS ORDERED: BIOTIN 500 MCG GT SCH (09:00)
[2021-01-20] MEDS ORDERED: SODIUM PHOSPHATE 15 MMOLE in NACL 0.9% 250 ML IV SCH (10:00)
[2021-01-20] MEDS: DOCUSATE 100 MG/10 ML UDC GT SCH ×2 (10:26→21:45)
[2021-01-20] MEDS: carBAMazepine 200 MG TAB GT SCH ×3 (10:27→16:54)
[2021-01-20] MEDS: atenoloL 25 MG TAB PO SCH (10:27)
[2021-01-20] MEDS: BENZTROPINE 1 MG TAB PO SCH ×2 (10:27→21:45)
[2021-01-20] MEDS: carvediloL 6.25 MG TAB GT SCH (10:38)
[2021-01-20] MEDS: sulfaSALAzine 500 MG TAB PO SCH (11:43)
[2021-01-20] MEDS: NACL 0.45% 500 ML IV SCH ×2 (11:59→21:30)
[2021-01-20 12:00] VITALS: BP 100/59
[2021-01-20 16:00] VITALS: BP 107/60
[2021-01-20] MEDS: sulfaSALAzine 500 MG TAB GT SCH (16:54)
[2021-01-20] MEDS: ALBUTEROL SULFATE/IPRATROPIU 3 ML SOL IH SCH (19:21)
[2021-01-20] MEDS: LEVOFLOXACIN 750 MG/D5W PREMIX 150 ML IV SCH (21:52)
[2021-01-20 23:43] VITALS: BP 105/68
[2021-01-21] MEDS: NACL 0.45% 500 ML IV SCH ×4 (00:09→21:45)
[2021-01-21] MEDS: ALBUTEROL SULFATE/IPRATROPIU 3 ML SOL IH SCH ×4 (00:50→19:52)
[2021-01-21] MEDS: CLINDAMYCIN 600 MG in DEXTROSE 5% 50 ML IV SCH ×3 (05:02→21:55)
[2021-01-21 05:28] VITALS: BP 111/61
[2021-01-21 06:21] LABS: BASOPHILS % (AUTO) 0.1 % (0.0-2.0); EOSINOPHILS # (AUTO) 0.4 K/uL (0-0.4); EOSINOPHILS % (AUTO) 4.4 % (0.0-4.0); HEMATOCRIT 27.8 % (36-52); HEMOGLOBIN 9.5 g/dL (12.0-18.0); LYMPHOCYTES # (AUTO) 0.5 K/uL (2.0-11.5); LYMPHOCYTES % (AUTO) 5.2 % (20.5-51.1); MEAN CORPUSCULAR HEMOGLOBIN 35 pg (27-31); MEAN CORPUSCULAR HGB CONC 34 g/dL (33-37); MONOCYTES # (AUTO) 0.7 K/uL (0.8-1.0); MONOCYTES % (AUTO) 8.1 % (1.7-9.3); NEUTROPHILS # (AUTO) 7.5 K/uL (1.8-7.7); NEUTROPHILS % (AUTO) 82.2 % (42.2-75.2); PLATELET COUNT (AUTO) 236 K/uL (140-450); RED BLOOD CELL COUNT(AUTO) 2.73 MIL/uL (4.20-6.10); RED CELL DISTRIBUTION WIDTH 15.4 % (11.6-13.7); WHITE BLOOD COUNT (AUTO) 9.2 K/uL (4.8-10.8)
[2021-01-21 06:46] LABS: ANION GAP 9.6 (8-16); CARBON DIOXIDE 26.7 mmol/L (21-32); CREATININE 0.3 mg/dL (0.6-1.3); POTASSIUM 3.3 mmol/L (3.5-5.1)
[2021-01-21 08:00] VITALS: BP 122/72
[2021-01-21] MEDS ORDERED: POTASSIUM CHLORIDE 10 MEQ TABER PO SCH (10:30)
[2021-01-21] MEDS: sulfaSALAzine 500 MG TAB PO SCH (10:36)
[2021-01-21] MEDS: carBAMazepine 200 MG TAB GT SCH ×3 (10:36→18:37)
[2021-01-21] MEDS: BENZTROPINE 1 MG TAB PO SCH ×2 (10:36→21:54)
[2021-01-21] MEDS: DOCUSATE 100 MG/10 ML UDC GT SCH ×2 (10:36→21:55)
[2021-01-21] MEDS: atenoloL 25 MG TAB PO SCH (10:37)
[2021-01-21 12:00] VITALS: BP 121/69
[2021-01-21 16:00] VITALS: BP 122/75
[2021-01-21] MEDS: sulfaSALAzine 500 MG TAB GT SCH (18:37)
[2021-01-21 20:00] VITALS: BP 120/69
[2021-01-21] MEDS: LEVOFLOXACIN 750 MG/D5W PREMIX 150 ML IV SCH (21:54)
[2021-01-22] VITALS: BP 119/72
[2021-01-22] MEDS: ALBUTEROL SULFATE/IPRATROPIU 3 ML SOL IH SCH ×4 (00:37→19:23)
[2021-01-22 04:00] VITALS: BP 124/69
[2021-01-22] MEDS: NACL 0.45% 500 ML IV SCH ×4 (05:00→18:54)
[2021-01-22 05:35] LABS: BASOPHILS % (AUTO) 0.2 % (0.0-2.0); EOSINOPHILS # (AUTO) 0.2 K/uL (0-0.4); EOSINOPHILS % (AUTO) 2.4 % (0.0-4.0); HEMATOCRIT 29.2 % (36-52); HEMOGLOBIN 9.7 g/dL (12.0-18.0); LYMPHOCYTES # (AUTO) 0.5 K/uL (2.0-11.5); LYMPHOCYTES % (AUTO) 7.6 % (20.5-51.1); MEAN CORPUSCULAR HEMOGLOBIN 34 pg (27-31); MEAN CORPUSCULAR HGB CONC 33 g/dL (33-37); MEAN CORPUSCULAR VOLUME 101.6 fL (80-94); MONOCYTES % (AUTO) 16.1 % (1.7-9.3); NEUTROPHILS # (AUTO) 4.7 K/uL (1.8-7.7); NEUTROPHILS % (AUTO) 73.7 % (42.2-75.2); PLATELET COUNT (AUTO) 255 K/uL (140-450); RED BLOOD CELL COUNT(AUTO) 2.88 MIL/uL (4.20-6.10); WHITE BLOOD COUNT (AUTO) 6.4 K/uL (4.8-10.8)
[2021-01-22] MEDS: CLINDAMYCIN 600 MG in DEXTROSE 5% 50 ML IV SCH ×3 (05:38→21:47)
[2021-01-22 06:11] LABS: ANION GAP 7.5 (8-16); CREATININE 0.4 mg/dL (0.6-1.3); POTASSIUM 3.5 mmol/L (3.5-5.1)
[2021-01-22 08:00] VITALS: BP 126/88
[2021-01-22] MEDS: BENZTROPINE 1 MG TAB PO SCH ×2 (09:47→21:47)
[2021-01-22] MEDS: carBAMazepine 200 MG TAB GT SCH ×3 (09:47→18:17)
[2021-01-22] MEDS: atenoloL 25 MG TAB PO SCH (09:48)
[2021-01-22] MEDS: DOCUSATE 100 MG/10 ML UDC GT SCH ×2 (09:48→21:47)
[2021-01-22] MEDS: sulfaSALAzine 500 MG TAB PO SCH (09:49)
[2021-01-22] MEDS ORDERED: POTASSIUM CHLORIDE 10 MEQ TABER PO SCH (11:00)
[2021-01-22 12:00] VITALS: BP 143/88
[2021-01-22] MEDS ORDERED: POTASSIUM CHLORIDE 20% 40 MEQ/15 ML UDC GT SCH (12:56)
[2021-01-22 16:00] VITALS: BP 138/80
[2021-01-22] MEDS: sulfaSALAzine 500 MG TAB GT SCH (17:00)
[2021-01-22] MEDS: LEVOFLOXACIN 750 MG/D5W PREMIX 150 ML IV SCH (18:54)
[2021-01-22 20:00] VITALS: BP 139/69
[2021-01-23] VITALS: BP 131/69
[2021-01-23] MEDS: ALBUTEROL SULFATE/IPRATROPIU 3 ML SOL IH SCH ×4 (01:05→19:55)
[2021-01-23 04:00] VITALS: BP 128/61
[2021-01-23] MEDS: NACL 0.45% 500 ML IV SCH (04:46)
[2021-01-23] MEDS: CLINDAMYCIN 600 MG in DEXTROSE 5% 50 ML IV SCH ×3 (05:07→21:56)
[2021-01-23 05:35] LABS: BASOPHILS % (AUTO) 0.2 % (0.0-2.0); EOSINOPHILS # (AUTO) 0.3 K/uL (0-0.4); EOSINOPHILS % (AUTO) 2.4 % (0.0-4.0); HEMATOCRIT 31.5 % (36-52); HEMOGLOBIN 10.6 g/dL (12.0-18.0); LYMPHOCYTES # (AUTO) 0.8 K/uL (2.0-11.5); LYMPHOCYTES % (AUTO) 6.1 % (20.5-51.1); MEAN CORPUSCULAR HEMOGLOBIN 34 pg (27-31); MEAN CORPUSCULAR HGB CONC 34 g/dL (33-37); MEAN CORPUSCULAR VOLUME 99.4 fL (80-94); MONOCYTES # (AUTO) 1.8 K/uL (0.8-1.0); MONOCYTES % (AUTO) 14.5 % (1.7-9.3); NEUTROPHILS # (AUTO) 9.5 K/uL (1.8-7.7); NEUTROPHILS % (AUTO) 76.8 % (42.2-75.2); PLATELET COUNT (AUTO) 278 K/uL (140-450); RED BLOOD CELL COUNT(AUTO) 3.17 MIL/uL (4.20-6.10); RED CELL DISTRIBUTION WIDTH 15.5 % (11.6-13.7); WHITE BLOOD COUNT (AUTO) 12.4 K/uL (4.8-10.8)
[2021-01-23 06:04] LABS: CARBON DIOXIDE 29.8 mmol/L (21-32); CREATININE 0.5 mg/dL (0.6-1.3); POTASSIUM 3.8 mmol/L (3.5-5.1)
[2021-01-23 08:00] VITALS: BP 112/57
[2021-01-23] MEDS: carBAMazepine 200 MG TAB GT SCH ×3 (10:06→18:46)
[2021-01-23] MEDS: atenoloL 25 MG TAB PO SCH ×2 (10:06→21:49)
[2021-01-23] MEDS: BENZTROPINE 1 MG TAB PO SCH ×2 (10:06→21:41)
[2021-01-23] MEDS: DOCUSATE 100 MG/10 ML UDC GT SCH ×2 (10:07→21:39)
[2021-01-23] MEDS: sulfaSALAzine 500 MG TAB PO SCH (10:11)
[2021-01-23 12:00] VITALS: BP 114/66
[2021-01-23 16:00] VITALS: BP 84/44
[2021-01-23] MEDS ORDERED: NACL 0.9% 1,000 ML IV ONE (17:00)
[2021-01-23] MEDS: sulfaSALAzine 500 MG TAB GT SCH (18:45)
[2021-01-23] MEDS: LEVOFLOXACIN 750 MG/D5W PREMIX 150 ML IV SCH (19:57)
[2021-01-23 20:00] VITALS: BP 108/62
[2021-01-24] VITALS: BP 111/65
[2021-01-24 04:00] VITALS: BP 119/75
[2021-01-24] MEDS: CLINDAMYCIN 600 MG in DEXTROSE 5% 50 ML IV SCH ×3 (05:03→21:53)
[2021-01-24 05:25] LABS: HEMATOCRIT 30.6 % (36-52); HEMOGLOBIN 10.1 g/dL (12.0-18.0); MEAN CORPUSCULAR HEMOGLOBIN 33 pg (27-31); MEAN CORPUSCULAR HGB CONC 33 g/dL (33-37); MEAN CORPUSCULAR VOLUME 99.4 fL (80-94); PLATELET COUNT (AUTO) 281 K/uL (140-450); RED BLOOD CELL COUNT(AUTO) 3.08 MIL/uL (4.20-6.10); RED CELL DISTRIBUTION WIDTH 15.6 % (11.6-13.7); WHITE BLOOD COUNT (AUTO) 16.1 K/uL (4.8-10.8)
[2021-01-24 05:45] LABS: ALBUMIN 1.7 g/dL (3.4-5.0); ANION GAP 7.6 (8-16); CARBON DIOXIDE 31.6 mmol/L (21-32); CREATININE 0.4 mg/dL (0.6-1.3); POTASSIUM 4.2 mmol/L (3.5-5.1); TOTAL BILIRUBIN 0.3 mg/dL (0.0-1.0)
[2021-01-24 06:29] LABS: EOSINOPHILS % (MANUAL) 3 % (0-4); LYMPHOCYTES % (MANUAL) 4 % (20-46); MONOCYTES % (MANUAL) 10 % (5-12)
[2021-01-24] MEDS: ALBUTEROL SULFATE/IPRATROPIU 3 ML SOL IH SCH ×4 (06:53→20:34)
[2021-01-24 08:00] VITALS: BP 145/92
[2021-01-24] MEDS: BENZTROPINE 1 MG TAB PO SCH ×2 (08:41→21:53)
[2021-01-24] MEDS: DOCUSATE 100 MG/10 ML UDC GT SCH ×2 (08:41→21:52)
[2021-01-24] MEDS: carBAMazepine 200 MG TAB GT SCH ×3 (08:41→16:55)
[2021-01-24] MEDS: atenoloL 25 MG TAB PO SCH ×2 (08:41→21:54)
[2021-01-24] MEDS: sulfaSALAzine 500 MG TAB PO SCH (08:42)
[2021-01-24 12:00] VITALS: BP 137/90
[2021-01-24 16:00] VITALS: BP 131/81
[2021-01-24] MEDS: sulfaSALAzine 500 MG TAB GT SCH (16:56)
[2021-01-24] MEDS: LEVOFLOXACIN 750 MG/D5W PREMIX 150 ML IV SCH (18:45)
[2021-01-24 20:00] VITALS: BP 126/78
[2021-01-25] VITALS: BP 128/80
[2021-01-25] MEDS: ALBUTEROL SULFATE/IPRATROPIU 3 ML SOL IH SCH ×4 (00:56→18:10)
[2021-01-25 03:51] VITALS: BP 122/76
[2021-01-25] MEDS: CLINDAMYCIN 600 MG in DEXTROSE 5% 50 ML IV SCH ×3 (06:18→21:11)
[2021-01-25 06:34] LABS: BASOPHILS % (AUTO) 0.2 % (0.0-2.0); EOSINOPHILS # (AUTO) 0.2 K/uL (0-0.4); EOSINOPHILS % (AUTO) 2.2 % (0.0-4.0); HEMATOCRIT 30.4 % (36-52); HEMOGLOBIN 10.3 g/dL (12.0-18.0); LYMPHOCYTES # (AUTO) 0.4 K/uL (2.0-11.5); LYMPHOCYTES % (AUTO) 4.8 % (20.5-51.1); MEAN CORPUSCULAR HEMOGLOBIN 33 pg (27-31); MEAN CORPUSCULAR HGB CONC 34 g/dL (33-37); MEAN CORPUSCULAR VOLUME 97.5 fL (80-94); MONOCYTES # (AUTO) 0.9 K/uL (0.8-1.0); MONOCYTES % (AUTO) 9.6 % (1.7-9.3); NEUTROPHILS # (AUTO) 7.5 K/uL (1.8-7.7); NEUTROPHILS % (AUTO) 83.2 % (42.2-75.2); PLATELET COUNT (AUTO) 305 K/uL (140-450); RED BLOOD CELL COUNT(AUTO) 3.11 MIL/uL (4.20-6.10); RED CELL DISTRIBUTION WIDTH 15.7 % (11.6-13.7)
[2021-01-25 07:17] LABS: ALBUMIN 1.8 g/dL (3.4-5.0); ANION GAP 10.8 (8-16); CREATININE 0.5 mg/dL (0.6-1.3); POTASSIUM 3.8 mmol/L (3.5-5.1); TOTAL BILIRUBIN 0.2 mg/dL (0.0-1.0)
[2021-01-25 08:00] VITALS: BP 109/66
[2021-01-25] MEDS: DOCUSATE 100 MG/10 ML UDC GT SCH ×2 (08:50→21:10)
[2021-01-25] MEDS: carBAMazepine 200 MG TAB GT SCH ×3 (08:51→16:58)
[2021-01-25] MEDS: BENZTROPINE 1 MG TAB PO SCH ×2 (08:51→21:12)
[2021-01-25] MEDS: atenoloL 25 MG TAB PO SCH ×2 (08:52→21:13)
[2021-01-25] MEDS: sulfaSALAzine 500 MG TAB PO SCH (08:54)
[2021-01-25 12:00] VITALS: BP 111/69
[2021-01-25 16:00] VITALS: BP 117/70
[2021-01-25] MEDS: sulfaSALAzine 500 MG TAB GT SCH (16:58)
[2021-01-25 20:00] VITALS: BP 114/72
[2021-01-25] MEDS: LEVOFLOXACIN 750 MG/D5W PREMIX 150 ML IV SCH (21:07)
[2021-01-26] VITALS: BP 110/68
[2021-01-26] MEDS: ALBUTEROL SULFATE/IPRATROPIU 3 ML SOL IH SCH ×4 (00:14→20:11)
[2021-01-26 04:00] VITALS: BP 118/72
[2021-01-26 06:32] LABS: ANION GAP 9.3 (8-16); CARBON DIOXIDE 29.7 mmol/L (21-32); CREATININE 0.5 mg/dL (0.6-1.3)
[2021-01-26 06:33] LABS: HEMATOCRIT 31.6 % (36-52); HEMOGLOBIN 10.6 g/dL (12.0-18.0); MEAN CORPUSCULAR HEMOGLOBIN 33 pg (27-31); MEAN CORPUSCULAR HGB CONC 34 g/dL (33-37); MEAN CORPUSCULAR VOLUME 97.5 fL (80-94); PLATELET COUNT (AUTO) 331 K/uL (140-450); RED BLOOD CELL COUNT(AUTO) 3.24 MIL/uL (4.20-6.10); WHITE BLOOD COUNT (AUTO) 5.7 K/uL (4.8-10.8)
[2021-01-26 07:14] LABS: EOSINOPHILS % (MANUAL) 4 % (0-4); LYMPHOCYTES % (MANUAL) 13 % (20-46); MONOCYTES % (MANUAL) 12 % (5-12)
[2021-01-26 08:00] VITALS: BP 112/58
[2021-01-26] MEDS: sulfaSALAzine 500 MG TAB PO SCH (09:00)
[2021-01-26] MEDS: carBAMazepine 200 MG TAB GT SCH ×3 (09:18→17:01)
[2021-01-26] MEDS: DOCUSATE 100 MG/10 ML UDC GT SCH ×2 (09:19→21:00)
[2021-01-26] MEDS: atenoloL 25 MG TAB PO SCH ×2 (09:19→21:00)
[2021-01-26] MEDS: BENZTROPINE 1 MG TAB PO SCH ×2 (09:19→21:00)
[2021-01-26 12:00] VITALS: BP 120/71
[2021-01-26] MEDS ORDERED: CLINDAMYCIN 600 MG in DEXTROSE 5% 50 ML IV SCH (13:00)
[2021-01-26 16:00] VITALS: BP 101/56
[2021-01-26] MEDS: sulfaSALAzine 500 MG TAB GT SCH (17:01)
[2021-01-26 20:00] VITALS: BP 100/63
[2021-01-27] VITALS: BP 105/64
[2021-01-27] MEDS: ALBUTEROL SULFATE/IPRATROPIU 3 ML SOL IH SCH ×3 (01:05→13:17)
[2021-01-27 04:00] VITALS: BP 106/64
[2021-01-27 05:17] LABS: EOSINOPHILS # (AUTO) 0.3 K/uL (0-0.4); HEMOGLOBIN 10.4 g/dL (12.0-18.0); MONOCYTES # (AUTO) 1.2 K/uL (0.8-1.0); RED CELL DISTRIBUTION WIDTH 16.1 % (11.6-13.7)
[2021-01-27 05:20] LABS: BASOPHILS % (AUTO) 0.6 % (0.0-2.0); EOSINOPHILS % (AUTO) 4.2 % (0.0-4.0); HEMATOCRIT 30.7 % (36-52); LYMPHOCYTES # (AUTO) 1.1 K/uL (2.0-11.5); LYMPHOCYTES % (AUTO) 17.9 % (20.5-51.1); MEAN CORPUSCULAR HEMOGLOBIN 33 pg (27-31); MEAN CORPUSCULAR HGB CONC 34 g/dL (33-37); MEAN CORPUSCULAR VOLUME 97.6 fL (80-94); MONOCYTES % (AUTO) 18.4 % (1.7-9.3); NEUTROPHILS # (AUTO) 3.8 K/uL (1.8-7.7); NEUTROPHILS % (AUTO) 58.9 % (42.2-75.2); PLATELET COUNT (AUTO) 378 K/uL (140-450); RED BLOOD CELL COUNT(AUTO) 3.15 MIL/uL (4.20-6.10); WHITE BLOOD COUNT (AUTO) 6.4 K/uL (4.8-10.8)
[2021-01-27 05:29] LABS: ANION GAP 7.6 (8-16); CARBON DIOXIDE 30.6 mmol/L (21-32); CREATININE 0.5 mg/dL (0.6-1.3); PHOSPHORUS 4.2 mg/dL (2.5-4.9); POTASSIUM 4.2 mmol/L (3.5-5.1); TOTAL BILIRUBIN 0.3 mg/dL (0.0-1.0)
[2021-01-27 08:00] VITALS: BP 116/76
[2021-01-27] MEDS: carBAMazepine 200 MG TAB GT SCH ×2 (09:37→12:49)
[2021-01-27] MEDS: BENZTROPINE 1 MG TAB PO SCH (09:37)
[2021-01-27] MEDS: atenoloL 25 MG TAB PO SCH (09:37)
[2021-01-27] MEDS: DOCUSATE 100 MG/10 ML UDC GT SCH (09:38)
[2021-01-27] MEDS: sulfaSALAzine 500 MG TAB PO SCH (09:38)
[2021-01-27] MEDS ORDERED: ATEN25TA7 PO (09:58)
[2021-01-27 12:00] VITALS: BP 100/73
[2021-01-27 14:24] VITALS: BP 100/73
== END 2021-01-27 15:00 | disposition home health service (06) | DRG 871 ==
LOC: MED 19:37 → MTU 23:29
PROVIDERS: ADMIT Preventive Medicine Preventive Medicine/Occupational Environmental Medicine; ATTEND Preventive Medicine Preventive Medicine/Occupational Environmental Medicine
PROC: 0D20XUZ Change Feeding Device in Upper Intestinal Tract, External Approach (ICD-10-PCS; principal; 2021-01-19)
DX: A41.9 Sepsis, unspecified organism (principal); J69.0 Pneumonitis due to inhalation of food and vomit; E43 Unspecified severe protein-calorie malnutrition; J96.21 Acute and chronic respiratory failure with hypoxia; K59.2 Neurogenic bowel, not elsewhere classified; E87.1 Hypo-osmolality and hyponatremia; K21.9 Gastro-esophageal reflux disease without esophagitis; E03.9 Hypothyroidism, unspecified; I10 Essential (primary) hypertension; G40.909 Epilepsy, unspecified, not intractable, without status epilepticus; R13.10 Dysphagia, unspecified; E83.51 Hypocalcemia; N28.9 Disorder of kidney and ureter, unspecified; E83.39 Other disorders of phosphorus metabolism; E87.6 Hypokalemia; F79 Unspecified intellectual disabilities; N31.9 Neuromuscular dysfunction of bladder, unspecified; D53.9 Nutritional anemia, unspecified; R73.9 Hyperglycemia, unspecified; E86.0 Dehydration; Z20.822 Contact with and (suspected) exposure to COVID-19; Z88.0 Allergy status to penicillin; Z88.1 Allergy status to other antibiotic agents; Z86.73 Personal history of transient ischemic attack (TIA), and cerebral infarction without residual deficits; Z93.1 Gastrostomy status; Z98.2 Presence of cerebrospinal fluid drainage device; Z88.8 Allergy status to other drugs, medicaments and biological substances; Z79.899 Other long term (current) drug therapy; Z68.26 Body mass index [BMI] 26.0-26.9, adult
CPT/HCPCS: 36415; 36600; 71045; 74018; 80048; 80053; 81001; 81003; 82271; 82803; 83605; 83735; 84100; 84484; 85025; 85651; 86140; 87040; 87081; 93005; 94640; 96361; 96365; 99291; J1956; J3490; J7030; J7060; J7613; J7644; Q0092; U0003

== ENCOUNTER 2021-04-03 20:16 | Emergency (ER) | payer OTHER, MEDICAID, SELFPAY ==
[~2021-04-03] VITALS: Ht 160 cm; Wt 74.4 kg
[~2021-04-03 20:16] MED LIST changes: -CARV6.25 GT; -DOXY-487 PO
[2021-04-03 20:55] VITALS: BP 148/94
--- NOTE | 2021-04-03 21:00 | NUR ---
received pt from EMS and placed to bed 5. pt currently a/ox 0 gcs 8 pt is a 55 year old male with hx of total blindness, sz d/o quadriplegia, olamide syndrome, hydrocephaly, HTN, GERD biba from [facility] for SOB and low sats at 84%. here in ER, pt sat is 98% on RA and VSS.
[2021-04-03 22:03] LABS: BASOPHILS % (AUTO) 0.4 % (0.0-2.0); EOSINOPHILS # (AUTO) 0.1 K/uL (0-0.4); EOSINOPHILS % (AUTO) 0.7 % (0.0-4.0); HEMATOCRIT 40.6 % (36-52); HEMOGLOBIN 13.4 g/dL (12.0-18.0); LYMPHOCYTES # (AUTO) 0.5 K/uL (2.0-11.5); MEAN CORPUSCULAR HEMOGLOBIN 31 pg (27-31); MEAN CORPUSCULAR HGB CONC 33 g/dL (33-37); MEAN CORPUSCULAR VOLUME 94.1 fL (80-94); MONOCYTES # (AUTO) 0.9 K/uL (0.8-1.0); MONOCYTES % (AUTO) 9.9 % (1.7-9.3); NEUTROPHILS # (AUTO) 7.2 K/uL (1.8-7.7); PLATELET COUNT (AUTO) 435 K/uL (140-450); RED BLOOD CELL COUNT(AUTO) 4.32 MIL/uL (4.20-6.10); RED CELL DISTRIBUTION WIDTH 17.4 % (11.6-13.7); WHITE BLOOD COUNT (AUTO) 8.6 K/uL (4.8-10.8)
[2021-04-03 22:23] LABS: ALBUMIN 2.8 g/dL (3.4-5.0); ANION GAP 10.5 (8-16); CARBON DIOXIDE 28.6 mmol/L (21-32); CREATININE 0.4 mg/dL (0.6-1.3); POTASSIUM 4.1 mmol/L (3.5-5.1); TOTAL BILIRUBIN 0.1 mg/dL (0.0-1.0)
--- NOTE | 2021-04-03 22:45 | NUR ---
SPOKE TO [facility] FOR RETURN TRANSPORT, STATED NO ONE AVAILABLE TO PICK HIM UP UNTIL MORNING SHE IS THE ONLY CAREGIVER PRESENT
--- NOTE | 2021-04-04 00:04 | NUR ---
turned pt lights off to promote sleep. pt is up , alert to pain only. both side rails up for safety. vss.
--- NOTE | 2021-04-04 01:30 | NUR ---
changed brief and cleaned. new mil and sheet provided. pt tolerated well. o2 sat 98 . assisted by yrn rea . both side rials up for safety. pt in a semi fowlers position.
--- NOTE | 2021-04-04 07:30 | NUR ---
RECEIVED REPORT FROM JEN GARCIA,TRANSFER OF CARE AT THIS TIME. PT RESTING IN BED WITH EVEN RISE OF FALL OF CHEST OBSERVED. NO DISTRESS NOTED. PT ON NET SORTER, VSS, WILL CONTINUE TO MONITOR
[2021-04-04 10:03] VITALS: BP 117/72
--- NOTE | 2021-04-04 10:17 | NUR ---
Patient discharged with v/s stable. Written and verbal after care instructions given and explained. Patient verbalized understanding. Wheel Chair Assisted with by caregiver. All questions addressed prior to discharge. Advised to follow up with PMD. DISCHARGE INSTRUCTIONS GIVEN TO CAREGIVER.
== END 2021-04-04 10:17 ==
LOC: MED 20:16
DX: R09.02 Hypoxemia (principal); R05.9 Cough, unspecified; K21.9 Gastro-esophageal reflux disease without esophagitis; I10 Essential (primary) hypertension; Z86.69 Personal history of other diseases of the nervous system and sense organs; Z86.39 Personal history of other endocrine, nutritional and metabolic disease; Z79.899 Other long term (current) drug therapy; Z88.1 Allergy status to other antibiotic agents; Z88.0 Allergy status to penicillin; Z88.8 Allergy status to other drugs, medicaments and biological substances
CPT/HCPCS: 36415; 71045; 80053; 83880; 84484; 85025; 93005; 99285; Q0092